=== PATIENT | female | born 1995 | race Asian ===

== ENCOUNTER 2018-02-06 11:57 | Emergency (ER) | payer OTHER ==
[~2018-02-06] VITALS: Ht 165.1 cm; Wt 59.9 kg
== END 2018-02-06 13:51 | disposition home or self-care (01) ==
LOC: ER 11:57
DX: H66.92 Otitis media, unspecified, left ear (principal)

== ENCOUNTER 2018-03-27 10:34 | Emergency (ER) | payer OTHER ==
[~2018-03-27] VITALS: Ht 172.7 cm; Wt 57.6 kg
== END 2018-03-27 13:11 | disposition home or self-care (01) ==
LOC: ER 10:34
DX: H92.02 Otalgia, left ear (principal); J32.8 Other chronic sinusitis

== ENCOUNTER 2019-07-11 10:50 | Outpatient (CLI) | payer OTHER | END 2019-07-11 10:59 | disposition home or self-care (01) | LOC: SONOGRAMA 10:50 | DX: R10.84 Generalized abdominal pain (principal); N91.2 Amenorrhea, unspecified; N89.8 Other specified noninflammatory disorders of vagina ==